=== PATIENT | female | born 1960 | race Caucasian/White ===

== ENCOUNTER 2017-12-13 00:30 | Emergency (ER) | payer OTHER ==
[~2017-12-13] VITALS: Ht 160 cm; Wt 74.8 kg
[~2017-12-13 00:30] MED LIST: ALPRAZOLAM; ANAPROX DS550 MG PO; EFFEXOR XR150 MG PO; HYDROCODONE-APA1 TA1 PO; INDOMETHACIN 2525 MG PO; LISINOPRIL; NAPROSYN500 MG PO; NORCO 5-325 TA1 EACH PO; PRILOSEC 20 MG20 MG; PRINIVIL20 MG; SINGULAIR; VISTARIL 25 MG25 M1 OR; XANAX 0.5 MG0.5 MG PO; ZANAFLEX4 MG PO
[2017-12-13 00:54] LABS: ABSOLUTE BASOPHILS 0.1 thou/uL (0.0-0.2); ABSOLUTE EOSINOPHILS 0.1 thou/uL (0.0-0.7); ABSOLUTE LYMPHOCYTES 3.4 thou/uL (0.8-5.3); ABSOLUTE MONOCYTES 0.6 thou/uL (0.0-1.2); ABSOLUTE NEUTROPHILS 3.3 thou/uL (1.6-8.1); BASOPHILS 1.1 %; EOSINOPHILS 1.6 %; HEMATOCRIT 43.6 % (37.0-47.0); HEMOGLOBIN 14.9 gm/dL (12.0-15.0); LYMPHOCYTES 44.8 %; MCH 28.5 pg (26.0-34.0); MCHC 34.1 g/dL (28.0-37.0); MCV 83.7 fL (80.0-100.0); MONOCYTES 8.1 %; MPV 7.1 fl. (7.2-11.1); NUCLEATED RBCS 0 /100WBC; PLATELET COUNT* 266 thou/uL (150-400); POLYS 44.4 %; RBC 5.21 mil/uL (4.20-5.00); RDW-CV 13.7 % (10.5-14.5); WBC 7.5 thou/uL (4.0-11.0)
[2017-12-13 01:12] LABS: ANION GAP 9 mmol/L (7-16); BUN 15 mg/dL (7-18); CHLORIDE 108 mmol/L (98-107); CO2 28 mmol/L (21-32); CREATININE 0.9 mg/dL (0.6-1.3); GLUCOSE 109 mg/dL (70-99); POTASSIUM 3.6 mmol/L (3.5-5.1); SODIUM 145 mmol/L (136-145)
[2017-12-13 01:13] LABS: URINE BILIRUBIN NEGATIVE (Negative); URINE BLOOD NEGATIVE (Negative); URINE CLARITY CLOUDY; URINE COLOR YELLOW; URINE GLUCOSE-RANDOM NEGATIVE (Negative); URINE KETONES NEGATIVE (Negative); URINE LEUKOCYTES-REFLEX NEGATIVE (Negative); URINE NITRITE-REFLEX NEGATIVE (Negative); URINE PROTEIN NEGATIVE (Negative); URINE SPECIFIC GRAVITY 1.015 (1.005-1.030); URINE UROBILINOGEN 0.2 E.U./dl (0.2-1.0)
[2017-12-13 01:20] LABS: AMP/METHAMP Negative (Negative); BARBITURATES Negative (Negative); BENZODIAZEPINES Negative (Negative); COCAINE Negative (Negative); METHADONE Negative (Negative); OPIATES Negative (Negative); PCP Negative (Negative); THC Negative (Negative)
[2017-12-13 01:27] LABS: ALBUMIN 3.7 g/dL (3.4-5.0); ALKALINE PHOSPHATASE 110 U/L (46-116); LIPASE 184 U/L (73-393); NT-PRO BRAIN NAT PEPTIDE 122 pg/mL (<300); SGOT 24 U/L (15-37); SGPT 49 U/L (30-65); TOTAL BILIRUBIN 0.8 mg/dL (<0.1-1.0); TOTAL PROTEIN 7.2 g/dL (6.4-8.2); TROPONIN-I LEVEL <0.06 ng/mL (<0.06)
[2017-12-13] MEDS ORDERED: XANAX 1 MG TABLE1 MG PO (02:20)
[2017-12-13] MEDS ORDERED: REGLAN 10 MG TA10 MG PO (02:20)
[2017-12-13 02:33] VITALS: BP 153/80
--- NOTE | 2017-12-13 12:53 | EKG ---
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 : 1960 Requested By: Luba Calderon Order Number: [id number] MD: Seth Joshua Measurements Intervals [place] Rate: 71 P: 53 TN: 150 QRS: 49 QRSD: 98 T: 24 QT: 366 QTc: 398 Interpretive Statements Sinus rhythm Probable left atrial enlargement Compared to ECG 10/13/2013 13:22:44 Sinus bradycardia no longer present Electronically Signed On 12-13-2017 12:52:55 [employer]LOBE [employer]OUNTER by Seth Joshua [email or web address] <ELECTRONICALLY SIGNED> By: Seth Joshua MD, LOCATED WITHIN [facility] 12/13/17 1252 Seth Joshua MD, FACC /EPI
== END 2017-12-13 02:34 | disposition home or self-care (01) ==
LOC: M.ERS 00:30
PROVIDERS: Emergency Medicine
DX: F41.9 Anxiety disorder, unspecified (principal); K21.9 Gastro-esophageal reflux disease without esophagitis; I10 Essential (primary) hypertension; Z90.710 Acquired absence of both cervix and uterus; Z98.890 Other specified postprocedural states; Z88.1 Allergy status to other antibiotic agents; Z88.0 Allergy status to penicillin; Z88.5 Allergy status to narcotic agent

== ENCOUNTER 2018-03-14 20:59 | Emergency (ER) | payer OTHER ==
[~2018-03-14] VITALS: Ht 160 cm; Wt 74.8 kg
[~2018-03-14 20:59] MED LIST changes: +REGLAN 10 MG TA10 MG PO; +XANAX 1 MG TABLE1 MG PO
[2018-03-14] MEDS ORDERED: XANAX (21:15)
[2018-03-14] MEDS ORDERED: MOBIC7.5 MG PO (23:04)
[2018-03-14] MEDS ORDERED: FLEXERIL PO (23:04)
[2018-03-14] MEDS ORDERED: PRINIVIL20 MG PO (23:31)
[2018-03-14 23:40] VITALS: BP 186/78
== END 2018-03-14 23:48 | disposition home or self-care (01) ==
LOC: M.ERS 20:59
DX: M54.5 Low back pain (principal); I10 Essential (primary) hypertension; F41.9 Anxiety disorder, unspecified; Z88.5 Allergy status to narcotic agent; Z88.1 Allergy status to other antibiotic agents; Z88.8 Allergy status to other drugs, medicaments and biological substances; Z90.710 Acquired absence of both cervix and uterus; Z90.49 Acquired absence of other specified parts of digestive tract

== ENCOUNTER 2018-07-08 16:45 | Emergency (ER) | payer OTHER ==
[~2018-07-08] VITALS: Ht 160 cm; Wt 77.1 kg
[~2018-07-08 16:45] MED LIST changes: +FLEXERIL PO; +MOBIC7.5 MG PO; +PRINIVIL20 MG PO; +XANAX
[2018-07-08 17:25] LABS: HEMATOCRIT 45.1 % (37.0-47.0); HEMOGLOBIN 15.5 gm/dL (12.0-15.0); MCH 29.3 pg (26.0-34.0); MCHC 34.3 g/dL (28.0-37.0); MCV 85.6 fL (80.0-100.0); MPV 6.8 fl. (7.2-11.1); NUCLEATED RBCS 0 /100WBC; PLATELET COUNT* 260 thou/uL (150-400); RBC 5.26 mil/uL (4.20-5.00); RDW-CV 13.6 % (10.5-14.5); WBC 8.8 thou/uL (4.0-11.0)
[2018-07-08 17:40] LABS: CALCIUM 8.5 mg/dL (8.5-10.1); CREATININE 0.8 mg/dL (0.6-1.3); POTASSIUM 3.3 mmol/L (3.5-5.1)
[2018-07-08 17:44] LABS: ALBUMIN 3.8 g/dL (3.4-5.0); TOTAL BILIRUBIN 1.2 mg/dL (<0.1-1.0); TOTAL PROTEIN 7.3 g/dL (6.4-8.2)
[2018-07-08 17:47] LABS: ABSOLUTE LYMPHOCYTES 0.5 thou/uL (0.8-5.3); ABSOLUTE MONOCYTES 0.3 thou/uL (0.0-1.2); PLATELET ESTIMATE ADEQUATE; TOXIC GRANULATION 1+
[2018-07-08 17:48] LABS: ANISOCYTOSIS Occasional
[2018-07-08 19:48] LABS: URINE BILIRUBIN NEGATIVE (Negative); URINE BLOOD NEGATIVE (Negative); URINE CLARITY CLEAR; URINE COLOR YELLOW; URINE GLUCOSE-RANDOM NEGATIVE (Negative); URINE KETONES NEGATIVE (Negative); URINE LEUKOCYTES-REFLEX NEGATIVE (Negative); URINE NITRITE-REFLEX NEGATIVE (Negative); URINE PROTEIN NEGATIVE (Negative); URINE SPECIFIC GRAVITY <= 1.005 (1.005-1.030); URINE UROBILINOGEN 0.2 E.U./dl (0.2-1.0)
[2018-07-08] MEDS ORDERED: ZOFRAN4 MG PO (19:57)
[2018-07-08 21:04] VITALS: BP 126/64
== END 2018-07-08 21:05 | disposition home or self-care (01) ==
LOC: M.ERS 16:45
PROVIDERS: Nurse Practitioner Family
DX: R11.2 Nausea with vomiting, unspecified (principal); R19.7 Diarrhea, unspecified; R10.84 Generalized abdominal pain; R94.5 Abnormal results of liver function studies; F41.0 Panic disorder [episodic paroxysmal anxiety]; I10 Essential (primary) hypertension; Z88.1 Allergy status to other antibiotic agents; Z88.5 Allergy status to narcotic agent; Z88.8 Allergy status to other drugs, medicaments and biological substances; Z90.710 Acquired absence of both cervix and uterus; Z90.49 Acquired absence of other specified parts of digestive tract